=== PATIENT | female | born 1965 ===

== ENCOUNTER 2017-12-01 13:43 | Emergency (ER) | payer OTHER ==
[~2017-12-01] VITALS: Ht 157.5 cm; Wt 74.4 kg
[~2017-12-01 13:43] MED LIST: ASPIR 8181 MG; CATAPRES0.2 MG; CLONIDINE HCL0.2 MG; GEMFIBROZIL600 MG; HUMULIN N100 U/ML; IMODIUM A-D2 MG PO; KETO10TA2 PO; LASIX20 MG; LEVSIN/SL0.125 MG SL; LISINOPRIL20 MG; METFORMIN HCL500 MG; PEPCID40 MG PO; URIN D.S. TABLE1 TAB PO; VASOTEC20 MG; VERAPAMIL ER100 MG PO; ZOFRAN4 MG PO
[2017-12-01] MEDS ORDERED: VALTREX1000 MG PO (15:30)
[2017-12-01] MEDS ORDERED: NEURONTIN800 MG PO (15:30)
== END 2017-12-01 22:31 | disposition home or self-care (01) ==
LOC: ER 13:43
DX: B02.9 Zoster without complications (principal)

== ENCOUNTER 2017-12-06 17:22 | Emergency (ER) | payer OTHER ==
[~2017-12-06] VITALS: Ht 157.5 cm; Wt 73.9 kg
[~2017-12-06 17:22] MED LIST changes: +NEURONTIN800 MG PO; +VALTREX1000 MG PO
[2017-12-06] MEDS ORDERED: HUMALOG MI100 UNIT/1 (17:41)
[2017-12-06] MEDS ORDERED: LANTUS SOL100 UNIT/1 (17:41)
[2017-12-06] MEDS ORDERED: KOMBIGLYZE XR1 EAC2 (17:42)
[2017-12-06] MEDS ORDERED: LIPITOR20 MG (17:43)
[2017-12-06] MEDS ORDERED: ZANTAC300 MG (17:43)
== END 2017-12-06 22:35 | disposition home or self-care (01) ==
LOC: ER 17:22
DX: K52.9 Noninfective gastroenteritis and colitis, unspecified (principal); R10.32 Left lower quadrant pain

== ENCOUNTER 2018-06-23 07:40 | Emergency (ER) | payer OTHER ==
[~2018-06-23] VITALS: Ht 160 cm; Wt 75.7 kg
[~2018-06-23 07:40] MED LIST changes: +HUMALOG MI100 UNIT/1; +KOMBIGLYZE XR1 EAC2; +LANTUS SOL100 UNIT/1; +LIPITOR20 MG; +ZANTAC300 MG
[2018-06-23] MEDS ORDERED: LOSARTAN-HCTZ1 EAC1 (08:00)
== END 2018-06-23 14:00 | disposition home or self-care (01) ==
LOC: ER 07:40
DX: G45.9 Transient cerebral ischemic attack, unspecified (principal); R20.0 Anesthesia of skin

== ENCOUNTER 2019-02-07 05:18 | Emergency (ER) | payer OTHER ==
[~2019-02-07] VITALS: Ht 160 cm; Wt 72.6 kg
[~2019-02-07 05:18] MED LIST changes: +LOSARTAN-HCTZ1 EAC1
[2019-02-07] MEDS ORDERED: ACTOS15 MG (05:31)
[2019-02-07] MEDS ORDERED: NIFE60TA3 (05:32)
[2019-02-07] MEDS ORDERED: JENTADUETO XR1 EACH (05:34)
[2019-02-07] MEDS ORDERED: PLAVIX75 MG (05:34)
[2019-02-07] MEDS ORDERED: HYDROCHLOROTHIA25 MG (05:37)
[2019-02-07] MEDS ORDERED: ZESTRIL40 M1 (05:37)
[2019-02-07] MEDS ORDERED: MEDROLPACK PO (12:06)
[2019-02-07] MEDS ORDERED: NORFLEX100MG PO (12:06)
[2019-02-07] MEDS ORDERED: NAPROXEN500 MG PO (12:06)
== END 2019-02-07 12:34 | disposition home or self-care (01) ==
LOC: ER 05:18
DX: M54.42 Lumbago with sciatica, left side (principal); M51.37 Other intervertebral disc degeneration, lumbosacral region

== ENCOUNTER 2021-06-11 08:00 | Outpatient (CLI) | payer OTHER ==
[~2021-06-11 08:00] MED LIST changes: +ACTOS15 MG; +HYDROCHLOROTHIA25 MG; +JENTADUETO XR1 EACH; +MEDROLPACK PO; +NAPROXEN500 MG PO; +NIFE60TA3; +NORFLEX100MG PO; +PLAVIX75 MG; +ZESTRIL40 M1
== END 2021-06-11 08:30 | disposition home or self-care (01) ==
LOC: PPH VACUNA 08:00
PROVIDERS: ATTEND Emergency Medicine Pediatric Emergency Medicine
DX: Z23 Encounter for immunization (principal)